=== PATIENT | female | born 1970 | race Caucasian/White ===

== ENCOUNTER 2017-07-01 09:39 | Outpatient (CLI) | payer OTHER, SELFPAY ==
[2017-07-01 10:08] VITALS: BMI 38.7
[2017-07-01 10:21] LABS: Basophils % 0.5 % (0.1-2.0); Eosinophils # 0.1 K/mm3 (0.0-0.4); Eosinophils % 1.6 % (0.1-12.0); Hematocrit 33.7 % (37.0-47.0); Hemoglobin 11.2 g/dL (12.2-16.2); Lymphocytes # 1.1 K/mm3 (0.7-4.5); Mean Corpuscular HGB Conc 33.2 g/dL (31.8-35.4); Mean Corpuscular Hemoglobin 30.1 pg (27.0-31.2); Mean Corpuscular Volume 90.6 fl (81-99); Mean Platelet Volume 7.7 fl (7.4-10.4); Monocytes # 0.3 K/mm3 (0.1-1.0); Monocytes % 5.5 % (1.7-9.3); Neutrophils # 4.4 K/mm3 (1.8-7.8); Neutrophils % 73.3 % (37.0-80.0); Platelet Count 133 K/mm3 (142-424); Red Blood Count 3.72 M/mm3 (4.20-5.40); Red Cell Distribution Width 16.1 % (11.5-17.5)
[2017-07-01 10:31] LABS: Alanine Aminotransferase 60 U/L (12-78); Albumin Level 3.5 gm/dL (3.4-5.0); Albumin/Globulin Ratio 1.1 (1.1-1.8); Alkaline Phosphatase 53 U/L (46-116); Anion Gap 11.9 mEq/L (5-15); Aspartate Amino Transferase 25 U/L (15-37); Bilirubin,Total 0.3 mg/dL (0.2-1.0); Blood Urea Nitrogen 14 mg/dL (7-18); Calcium 7.8 mg/dL (8.5-10.1); Carbon Dioxide 29 mmol/L (21.0-32.0); Chloride 108 mmol/L (98-107); Creatinine Clearance Estimated 149 mL/min (0-300); Creatinine,Serum 0.74 mg/dL (0.55-1.02); Estimated Glomerular Filt Rate 84 ml/min (>60); GFR (African American) 102 ML/MIN (>60); Globulin 3.3 gm/dl (1.3-3.2); Glucose 96 mg/dL (74-106); Potassium 4.9 mmoL/L (3.5-5.1); Sodium 144 mmol/L (136-145); Total Protein,Serum 6.8 gm/dL (6.4-8.2)
[2017-07-01 11:40] VITALS: BP 153/75; PULSE 66; RESP 20; TEMP 36.4
[2017-07-01 11:55] VITALS: BP 132/76; PULSE 66; RESP 20; TEMP 36.4
[2017-07-01 12:10] VITALS: BP 132/71; PULSE 66; RESP 20; TEMP 36.4; O2SAT 96
[2017-07-01 12:25] VITALS: BP 128/70; PULSE 68; RESP 20; TEMP 36.1; O2SAT 98
[2017-07-01 12:50] VITALS: BP 130/74; PULSE 68; RESP 18; TEMP 36.4; O2SAT 98
== END 2017-07-01 13:00 | disposition home or self-care (01) ==
LOC: RAD 09:42
PROVIDERS: PCP Internal Medicine Adolescent Medicine; Visit Provider Internal Medicine
DX: C50.919 Malignant neoplasm of unspecified site of unspecified female breast (principal); Z51.11 Encounter for antineoplastic chemotherapy
CPT/HCPCS: 80053; 85025; 96413; J1642; J9267

== ENCOUNTER 2017-07-09 09:00 | Outpatient (CLI) | payer OTHER, SELFPAY ==
[2017-07-09] VITALS (7 sets, daily range): BP systolic 141–155; BP diastolic 76–94; PULSE 85–96; RESP 18–20; TEMP 36.6–36.8; O2SAT 98–99; BMI 39.4
[2017-07-09 09:55] LABS: Basophils % 0.6 % (0.1-2.0); Eosinophils # 0.1 K/mm3 (0.0-0.4); Eosinophils % 2.2 % (0.1-12.0); Hematocrit 33.6 % (37.0-47.0); Hemoglobin 11.2 g/dL (12.2-16.2); Lymphocytes # 1.1 K/mm3 (0.7-4.5); Lymphocytes % 27.4 K/mm3 (10-50); Mean Corpuscular HGB Conc 33.3 g/dL (31.8-35.4); Mean Corpuscular Hemoglobin 30.6 pg (27.0-31.2); Mean Platelet Volume 7.5 fl (7.4-10.4); Monocytes # 0.3 K/mm3 (0.1-1.0); Monocytes % 7.3 % (1.7-9.3); Neutrophils # 2.6 K/mm3 (1.8-7.8); Neutrophils % 62.4 % (37.0-80.0); Platelet Count 145 K/mm3 (142-424); Red Blood Count 3.66 M/mm3 (4.20-5.40); White Blood Count 4.1 K/mm3 (4.8-10.8)
[2017-07-09 10:11] LABS: Alanine Aminotransferase 60 U/L (12-78); Albumin Level 3.7 gm/dL (3.4-5.0); Albumin/Globulin Ratio 1.2 (1.1-1.8); Alkaline Phosphatase 51 U/L (46-116); Anion Gap 12.9 mEq/L (5-15); Aspartate Amino Transferase 25 U/L (15-37); Bilirubin,Total 0.3 mg/dL (0.2-1.0); Blood Urea Nitrogen 13 mg/dL (7-18); Carbon Dioxide 27 mmol/L (21.0-32.0); Chloride 108 mmol/L (98-107); Creatinine Clearance Estimated 148 mL/min (0-300); Creatinine,Serum 0.76 mg/dL (0.55-1.02); Estimated Glomerular Filt Rate 82 ml/min (>60); GFR (African American) 99 ML/MIN (>60); Globulin 3.2 gm/dl (1.3-3.2); Glucose 99 mg/dL (74-106); Potassium 3.9 mmoL/L (3.5-5.1); Sodium 144 mmol/L (136-145); Total Protein,Serum 6.9 gm/dL (6.4-8.2)
== END 2017-07-09 12:10 | disposition home or self-care (01) ==
LOC: INF 09:40
PROVIDERS: Family Provider Internal Medicine Adolescent Medicine; PCP Internal Medicine Adolescent Medicine; Visit Provider Internal Medicine
DX: Z51.11 Encounter for antineoplastic chemotherapy (principal); C50.919 Malignant neoplasm of unspecified site of unspecified female breast
CPT/HCPCS: 80053; 85025; 96413; 96415; J9267

== ENCOUNTER 2017-07-16 09:15 | Outpatient (CLI) | payer OTHER, SELFPAY ==
[2017-07-16] VITALS (7 sets, daily range): BP systolic 126–145; BP diastolic 73–87; PULSE 82–98; RESP 18–20; TEMP 36.7; O2SAT 94; BMI 38.9
[2017-07-16 09:44] LABS: Basophils % 0.7 % (0.1-2.0); Eosinophils # 0.2 K/mm3 (0.0-0.4); Eosinophils % 3.6 % (0.1-12.0); Hematocrit 34.4 % (37.0-47.0); Hemoglobin 11.3 g/dL (12.2-16.2); Lymphocytes # 1.3 K/mm3 (0.7-4.5); Lymphocytes % 31.4 K/mm3 (10-50); Mean Corpuscular HGB Conc 32.9 g/dL (31.8-35.4); Mean Corpuscular Hemoglobin 30.6 pg (27.0-31.2); Mean Corpuscular Volume 93.1 fl (81-99); Mean Platelet Volume 7.7 fl (7.4-10.4); Monocytes # 0.3 K/mm3 (0.1-1.0); Monocytes % 6.6 % (1.7-9.3); Neutrophils # 2.4 K/mm3 (1.8-7.8); Neutrophils % 57.8 % (37.0-80.0); Platelet Count 144 K/mm3 (142-424); Red Blood Count 3.69 M/mm3 (4.20-5.40); Red Cell Distribution Width 16.4 % (11.5-17.5); White Blood Count 4.1 K/mm3 (4.8-10.8)
== END 2017-07-16 12:15 | disposition home or self-care (01) ==
LOC: INF 09:34
PROVIDERS: Family Provider Internal Medicine Adolescent Medicine; PCP Internal Medicine Adolescent Medicine; Visit Provider Internal Medicine
DX: Z51.11 Encounter for antineoplastic chemotherapy (principal); C50.919 Malignant neoplasm of unspecified site of unspecified female breast
CPT/HCPCS: 85025; 96413; 96415; J9267

== ENCOUNTER 2017-07-29 08:50 | Outpatient (CLI) | payer OTHER, SELFPAY ==
[2017-07-29 08:59] VITALS: BMI 38.9
[2017-07-29 09:21] LABS: Basophils % 0.4 % (0.1-2.0); Eosinophils # 0.1 K/mm3 (0.0-0.4); Eosinophils % 1.9 % (0.1-12.0); Hematocrit 35.8 % (37.0-47.0); Hemoglobin 11.5 g/dL (12.2-16.2); Lymphocytes # 1.2 K/mm3 (0.7-4.5); Lymphocytes % 30.5 K/mm3 (10-50); Mean Corpuscular HGB Conc 32.1 g/dL (31.8-35.4); Mean Corpuscular Hemoglobin 30.3 pg (27.0-31.2); Mean Corpuscular Volume 94.3 fl (81-99); Mean Platelet Volume 8.1 fl (7.4-10.4); Monocytes # 0.3 K/mm3 (0.1-1.0); Monocytes % 7.6 % (1.7-9.3); Neutrophils # 2.3 K/mm3 (1.8-7.8); Neutrophils % 59.6 % (37.0-80.0); Platelet Count 147 K/mm3 (142-424); Red Cell Distribution Width 16.2 % (11.5-17.5); White Blood Count 3.8 K/mm3 (4.8-10.8)
[2017-07-29 10:15] VITALS: BP 122/69; PULSE 104; RESP 18; TEMP 36.5
[2017-07-29 10:30] VITALS: BP 117/82; PULSE 96; RESP 18
[2017-07-29 10:45] VITALS: BP 122/69; PULSE 99; RESP 18
[2017-07-29 11:00] VITALS: BP 113/75; PULSE 97; RESP 18
[2017-07-29 11:15] VITALS: BP 119/72; PULSE 98; RESP 18
[2017-07-29 11:30] VITALS: BP 110/65; PULSE 97; RESP 18
== END 2017-07-29 11:40 | disposition home or self-care (01) ==
LOC: INF 08:55
PROVIDERS: Family Provider Internal Medicine Adolescent Medicine; PCP Internal Medicine Adolescent Medicine; Visit Provider Internal Medicine
DX: Z51.11 Encounter for antineoplastic chemotherapy (principal); C50.919 Malignant neoplasm of unspecified site of unspecified female breast
CPT/HCPCS: 85025; 96413; 96415; J9267

== ENCOUNTER 2017-08-06 09:29 | Outpatient (CLI) | payer OTHER, SELFPAY ==
[2017-08-06 09:33] VITALS: BMI 39.6
[2017-08-06 10:00] LABS: Basophils % 0.5 % (0.1-2.0); Eosinophils % 1.2 % (0.1-12.0); Hematocrit 34.2 % (37.0-47.0); Hemoglobin 11.4 g/dL (12.2-16.2); Lymphocytes # 1.2 K/mm3 (0.7-4.5); Lymphocytes % 34.5 K/mm3 (10-50); Mean Corpuscular HGB Conc 33.4 g/dL (31.8-35.4); Mean Corpuscular Hemoglobin 32.1 pg (27.0-31.2); Mean Platelet Volume 7.2 fl (7.4-10.4); Monocytes # 0.2 K/mm3 (0.1-1.0); Monocytes % 6.6 % (1.7-9.3); Neutrophils # 1.9 K/mm3 (1.8-7.8); Neutrophils % 57.2 % (37.0-80.0); Platelet Count 160 K/mm3 (142-424); Red Blood Count 3.56 M/mm3 (4.20-5.40); Red Cell Distribution Width 16.4 % (11.5-17.5); White Blood Count 3.4 K/mm3 (4.8-10.8)
[2017-08-06 11:15] VITALS: BP 119/79; PULSE 68; RESP 20; TEMP 36.4; O2SAT 96
[2017-08-06 11:30] VITALS: BP 122/70; PULSE 78; RESP 20; TEMP 36.7; O2SAT 96
[2017-08-06 12:15] VITALS: BP 118/74; PULSE 78; RESP 20; TEMP 36.9; O2SAT 98
== END 2017-08-06 12:30 | disposition home or self-care (01) ==
LOC: INF 09:29
PROVIDERS: Family Provider Internal Medicine Adolescent Medicine; PCP Internal Medicine Adolescent Medicine; Visit Provider Internal Medicine
DX: Z51.11 Encounter for antineoplastic chemotherapy (principal); C50.919 Malignant neoplasm of unspecified site of unspecified female breast
CPT/HCPCS: 85025; 96413; J9267

== ENCOUNTER 2017-08-12 09:35 | Outpatient (CLI) | payer OTHER, SELFPAY ==
[2017-08-12] VITALS (7 sets, daily range): BP systolic 102–118; BP diastolic 63–76; PULSE 92–99; RESP 18–20; TEMP 36.6; O2SAT 96–97; BMI 38.7
[2017-08-12 10:06] LABS: Basophils % 0.8 % (0.1-2.0); Eosinophils # 0.1 K/mm3 (0.0-0.4); Eosinophils % 2.5 % (0.1-12.0); Hematocrit 36.3 % (37.0-47.0); Hemoglobin 11.9 g/dL (12.2-16.2); Lymphocytes % 33.5 K/mm3 (10-50); Mean Corpuscular HGB Conc 32.7 g/dL (31.8-35.4); Mean Corpuscular Hemoglobin 31.4 pg (27.0-31.2); Mean Platelet Volume 8.2 fl (7.4-10.4); Monocytes # 0.2 K/mm3 (0.1-1.0); Monocytes % 7.9 % (1.7-9.3); Neutrophils # 1.7 K/mm3 (1.8-7.8); Neutrophils % 55.4 % (37.0-80.0); Platelet Count 159 K/mm3 (142-424); Red Blood Count 3.79 M/mm3 (4.20-5.40)
== END 2017-08-12 12:35 | disposition home or self-care (01) ==
LOC: INF 09:37
PROVIDERS: Family Provider Internal Medicine Adolescent Medicine; PCP Internal Medicine Adolescent Medicine; Visit Provider Internal Medicine
DX: Z51.11 Encounter for antineoplastic chemotherapy (principal); C50.919 Malignant neoplasm of unspecified site of unspecified female breast
CPT/HCPCS: 85025; 96413; 96415; J9267

== ENCOUNTER 2017-08-27 09:10 | Outpatient (CLI) | payer OTHER, SELFPAY ==
[2017-08-27 09:28] VITALS: BMI 38.7
[2017-08-27 10:00] LABS: Basophils % 0.2 % (0.1-2.0); Eosinophils # 0.1 K/mm3 (0.0-0.4); Eosinophils % 1.4 % (0.1-12.0); Hemoglobin 11.4 g/dL (12.2-16.2); Lymphocytes # 1.2 K/mm3 (0.7-4.5); Lymphocytes % 30.2 K/mm3 (10-50); Mean Corpuscular HGB Conc 32.7 g/dL (31.8-35.4); Mean Corpuscular Hemoglobin 31.4 pg (27.0-31.2); Mean Corpuscular Volume 96.2 fl (81-99); Monocytes # 0.3 K/mm3 (0.1-1.0); Monocytes % 7.3 % (1.7-9.3); Neutrophils # 2.4 K/mm3 (1.8-7.8); Neutrophils % 60.8 % (37.0-80.0); Platelet Count 158 K/mm3 (142-424); Red Blood Count 3.64 M/mm3 (4.20-5.40); Red Cell Distribution Width 15.7 % (11.5-17.5)
[2017-08-27 10:48] VITALS: BP 118/84; PULSE 96; RESP 18; TEMP 36.4; O2SAT 100
[2017-08-27 11:03] VITALS: BP 127/64; PULSE 72; RESP 18; O2SAT 98
[2017-08-27 11:18] VITALS: BP 139/91; PULSE 100; RESP 18; O2SAT 97
[2017-08-27 11:33] VITALS: BP 137/85; PULSE 96; RESP 18; O2SAT 99
[2017-08-27 11:48] VITALS: BP 131/81; PULSE 94; RESP 18; O2SAT 98
[2017-08-27 12:06] VITALS: BP 129/84; PULSE 97; RESP 18; O2SAT 99
== END 2017-08-27 12:30 | disposition home or self-care (01) ==
LOC: INF 09:26
PROVIDERS: Family Provider Internal Medicine Adolescent Medicine; PCP Internal Medicine Adolescent Medicine; Visit Provider Internal Medicine
DX: Z51.11 Encounter for antineoplastic chemotherapy (principal); C50.919 Malignant neoplasm of unspecified site of unspecified female breast
CPT/HCPCS: 85025; 96413; J9267

== ENCOUNTER 2017-09-03 09:10 | Outpatient (CLI) | payer OTHER, SELFPAY ==
[2017-09-03 09:12] VITALS: BMI 40.1
[2017-09-03 09:45] LABS: Basophils % 0.6 % (0.1-2.0); Eosinophils # 0.1 K/mm3 (0.0-0.4); Eosinophils % 1.5 % (0.1-12.0); Hematocrit 35.9 % (37.0-47.0); Hemoglobin 11.6 g/dL (12.2-16.2); Lymphocytes # 1.2 K/mm3 (0.7-4.5); Lymphocytes % 32.1 K/mm3 (10-50); Mean Corpuscular HGB Conc 32.4 g/dL (31.8-35.4); Mean Corpuscular Hemoglobin 31.5 pg (27.0-31.2); Mean Corpuscular Volume 97.4 fl (81-99); Mean Platelet Volume 7.6 fl (7.4-10.4); Monocytes # 0.3 K/mm3 (0.1-1.0); Monocytes % 7.1 % (1.7-9.3); Neutrophils # 2.2 K/mm3 (1.8-7.8); Neutrophils % 58.6 % (37.0-80.0); Platelet Count 153 K/mm3 (142-424); Red Blood Count 3.68 M/mm3 (4.20-5.40); Red Cell Distribution Width 15.8 % (11.5-17.5); White Blood Count 3.7 K/mm3 (4.8-10.8)
[2017-09-03 10:40] VITALS: BP 141/87; PULSE 92; RESP 18; TEMP 36.7
[2017-09-03 10:55] VITALS: BP 139/75; PULSE 95; RESP 18
[2017-09-03 11:10] VITALS: BP 133/82; PULSE 94; RESP 18
[2017-09-03 11:25] VITALS: BP 135/81; PULSE 102; RESP 18
[2017-09-03 11:40] VITALS: BP 136/74; PULSE 102; RESP 18
[2017-09-03 12:00] VITALS: BP 129/68; PULSE 102; RESP 20
== END 2017-09-03 12:00 | disposition home or self-care (01) ==
LOC: INF 09:10
PROVIDERS: Family Provider Internal Medicine Adolescent Medicine; PCP Internal Medicine Adolescent Medicine; Visit Provider Internal Medicine
DX: Z51.11 Encounter for antineoplastic chemotherapy (principal); C50.919 Malignant neoplasm of unspecified site of unspecified female breast
CPT/HCPCS: 85025; 96413; J9267

== ENCOUNTER → 2017-09-09 09:40 | Outpatient (CLI) | payer OTHER, SELFPAY | PROVIDERS: Family Provider Internal Medicine Adolescent Medicine; PCP Internal Medicine Adolescent Medicine; Visit Provider Internal Medicine ==

== ENCOUNTER 2017-10-21 10:37 | Outpatient (CLI) | payer OTHER, SELFPAY ==
[2017-10-21 10:35] VITALS: BP 135/76; PULSE 71; RESP 18; TEMP 36.6; O2SAT 97
== END 2017-10-21 10:50 | disposition home or self-care (01) ==
LOC: INF 10:37
PROVIDERS: Family Provider Internal Medicine Adolescent Medicine; PCP Internal Medicine Adolescent Medicine; Visit Provider Internal Medicine
DX: Z45.2 Encounter for adjustment and management of vascular access device (principal)
CPT/HCPCS: 96523; J1642

== ENCOUNTER 2017-12-16 10:02 | Outpatient (CLI) | payer OTHER, SELFPAY | END 2017-12-16 10:35 | disposition home or self-care (01) | LOC: INF 10:02 | PROVIDERS: Family Provider Internal Medicine Adolescent Medicine; PCP Internal Medicine Adolescent Medicine; Visit Provider Internal Medicine | DX: C50.919 Malignant neoplasm of unspecified site of unspecified female breast (principal); Z45.2 Encounter for adjustment and management of vascular access device | CPT/HCPCS: 96523; J1642 ==

== ENCOUNTER → 2018-01-03 14:37 | Outpatient (CLI) | payer OTHER, SELFPAY ==
[2018-01-03 14:53] LABS: Basophils % 0.5 % (0.1-2.0); Eosinophils # 0.1 K/mm3 (0.0-0.4); Eosinophils % 3.5 % (0.1-12.0); Hematocrit 39.4 % (37.0-47.0); Hemoglobin 13.2 g/dL (12.2-16.2); Lymphocytes # 1.2 K/mm3 (0.7-4.5); Lymphocytes % 31.7 K/mm3 (10-50); Mean Corpuscular HGB Conc 33.6 g/dL (31.8-35.4); Mean Corpuscular Hemoglobin 29.2 pg (27.0-31.2); Mean Corpuscular Volume 86.9 fl (81-99); Mean Platelet Volume 6.4 fl (7.4-10.4); Monocytes # 0.2 K/mm3 (0.1-1.0); Monocytes % 5.2 % (1.7-9.3); Neutrophils # 2.3 K/mm3 (1.8-7.8); Neutrophils % 59.1 % (37.0-80.0); Platelet Count 134 K/mm3 (142-424); Red Blood Count 4.53 M/mm3 (4.20-5.40); Red Cell Distribution Width 19.9 % (11.5-17.5); White Blood Count 3.9 K/mm3 (4.8-10.8)
[2018-01-03 15:13] LABS: Alanine Aminotransferase 58 U/L (12-78); Albumin Level 4.1 gm/dL (3.4-5.0); Albumin/Globulin Ratio 1.2 (1.1-1.8); Alkaline Phosphatase 76 U/L (46-116); Aspartate Amino Transferase 34 U/L (15-37); Bilirubin,Total 0.3 mg/dL (0.2-1.0); Blood Urea Nitrogen 15 mg/dL (7-18); Calcium 9.4 mg/dL (8.5-10.1); Carbon Dioxide 26 mmol/L (21.0-32.0); Chloride 107 mmol/L (98-107); Creatinine,Serum 0.91 mg/dL (0.55-1.02); Estimated Glomerular Filt Rate 66 ml/min (>60); GFR (African American) 80 ML/MIN (>60); Globulin 3.4 gm/dl (1.3-3.2); Glucose 102 mg/dL (74-106); Sodium 141 mmol/L (136-145); Total Protein,Serum 7.5 gm/dL (6.4-8.2)
== END ==
PROVIDERS: Visit Provider Internal Medicine
DX: C50.919 Malignant neoplasm of unspecified site of unspecified female breast (principal)
CPT/HCPCS: 36415; 80053; 85025

== ENCOUNTER 2018-01-13 10:05 | Outpatient (CLI) | payer OTHER, SELFPAY | END 2018-01-13 10:25 | disposition home or self-care (01) | LOC: INF 10:05 | PROVIDERS: Family Provider Internal Medicine Adolescent Medicine; PCP Internal Medicine Adolescent Medicine; Visit Provider Internal Medicine | DX: C50.919 Malignant neoplasm of unspecified site of unspecified female breast; Z45.2 Encounter for adjustment and management of vascular access device | CPT/HCPCS: 96523; J1642 ==

== ENCOUNTER → 2018-02-14 15:03 | Outpatient (CLI) | payer OTHER, SELFPAY ==
[2018-02-14 15:37] LABS: Basophils % 0.6 % (0.1-2.0); Eosinophils # 0.1 K/mm3 (0.0-0.4); Eosinophils % 1.8 % (0.1-12.0); Hemoglobin 13.3 g/dL (12.2-16.2); Lymphocytes # 1.5 K/mm3 (0.7-4.5); Lymphocytes % 35.2 K/mm3 (10-50); Mean Corpuscular HGB Conc 33.2 g/dL (31.8-35.4); Mean Corpuscular Hemoglobin 31.1 pg (27.0-31.2); Mean Corpuscular Volume 93.8 fl (81-99); Mean Platelet Volume 6.8 fl (7.4-10.4); Monocytes # 0.3 K/mm3 (0.1-1.0); Neutrophils # 2.4 K/mm3 (1.8-7.8); Neutrophils % 56.4 % (37.0-80.0); Platelet Count 147 K/mm3 (142-424); Red Blood Count 4.26 M/mm3 (4.20-5.40); Red Cell Distribution Width 19.2 % (11.5-17.5); White Blood Count 4.3 K/mm3 (4.8-10.8)
[2018-02-14 16:07] LABS: Alanine Aminotransferase 66 U/L (12-78); Albumin/Globulin Ratio 1.3 (1.1-1.8); Alkaline Phosphatase 80 U/L (46-116); Anion Gap 12.1 mEq/L (5-15); Aspartate Amino Transferase 31 U/L (15-37); Bilirubin,Total 0.3 mg/dL (0.2-1.0); Blood Urea Nitrogen 7 mg/dL (7-18); Carbon Dioxide 28 mmol/L (21.0-32.0); Chloride 109 mmol/L (98-107); Creatinine,Serum 0.77 mg/dL (0.55-1.02); Estimated Glomerular Filt Rate 80 ml/min (>60); GFR (African American) 97 ML/MIN (>60); Globulin 3.1 gm/dl (1.3-3.2); Glucose 107 mg/dL (74-106); Potassium 4.1 mmoL/L (3.5-5.1); Sodium 145 mmol/L (136-145); Total Protein,Serum 7.1 gm/dL (6.4-8.2)
== END ==
PROVIDERS: PCP Internal Medicine Adolescent Medicine; Visit Provider Internal Medicine
DX: C50.919 Malignant neoplasm of unspecified site of unspecified female breast (principal)
CPT/HCPCS: 36415; 80053; 85025

== ENCOUNTER 2018-02-17 10:20 | Outpatient (CLI) | payer OTHER, SELFPAY ==
[2018-02-17 10:35] VITALS: BP 125/77; PULSE 84; RESP 18; TEMP 36.6; O2SAT 98
== END 2018-02-17 10:45 | disposition home or self-care (01) ==
LOC: INF 10:20
PROVIDERS: Family Provider Internal Medicine Adolescent Medicine; PCP Internal Medicine Adolescent Medicine; Visit Provider Internal Medicine
DX: Z45.2 Encounter for adjustment and management of vascular access device (principal); C50.919 Malignant neoplasm of unspecified site of unspecified female breast
CPT/HCPCS: 96523; J1642

== ENCOUNTER → 2018-02-28 15:17 | Outpatient (CLI) | payer OTHER, SELFPAY ==
[2018-02-28 15:43] LABS: Basophils % 0.5 % (0.1-2.0); Eosinophils # 0.1 K/mm3 (0.0-0.4); Eosinophils % 2.7 % (0.1-12.0); Hematocrit 39.3 % (37.0-47.0); Hemoglobin 13.1 g/dL (12.2-16.2); Lymphocytes # 1.9 K/mm3 (0.7-4.5); Lymphocytes % 39.7 K/mm3 (10-50); Mean Corpuscular HGB Conc 33.4 g/dL (31.8-35.4); Mean Corpuscular Hemoglobin 31.7 pg (27.0-31.2); Mean Corpuscular Volume 94.9 fl (81-99); Mean Platelet Volume 6.6 fl (7.4-10.4); Monocytes # 0.3 K/mm3 (0.1-1.0); Monocytes % 6.8 % (1.7-9.3); Neutrophils # 2.4 K/mm3 (1.8-7.8); Neutrophils % 50.4 % (37.0-80.0); Platelet Count 150 K/mm3 (142-424); Red Blood Count 4.15 M/mm3 (4.20-5.40); Red Cell Distribution Width 18.3 % (11.5-17.5); White Blood Count 4.8 K/mm3 (4.8-10.8)
[2018-02-28 16:33] LABS: Alanine Aminotransferase 61 U/L (12-78); Albumin Level 3.9 gm/dL (3.4-5.0); Albumin/Globulin Ratio 1.2 (1.1-1.8); Alkaline Phosphatase 75 U/L (46-116); Anion Gap 12.8 mEq/L (5-15); Aspartate Amino Transferase 34 U/L (15-37); Bilirubin,Total 0.3 mg/dL (0.2-1.0); Blood Urea Nitrogen 17 mg/dL (7-18); Calcium 9.1 mg/dL (8.5-10.1); Carbon Dioxide 30 mmol/L (21.0-32.0); Chloride 104 mmol/L (98-107); Creatinine,Serum 0.87 mg/dL (0.55-1.02); Estimated Glomerular Filt Rate 70 ml/min (>60); GFR (African American) 84 ML/MIN (>60); Globulin 3.2 gm/dl (1.3-3.2); Glucose 100 mg/dL (74-106); Potassium 3.8 mmoL/L (3.5-5.1); Sodium 143 mmol/L (136-145); Total Protein,Serum 7.1 gm/dL (6.4-8.2)
== END ==
PROVIDERS: PCP Internal Medicine Adolescent Medicine; Visit Provider Internal Medicine
DX: Z51.11 Encounter for antineoplastic chemotherapy (principal); C50.919 Malignant neoplasm of unspecified site of unspecified female breast
CPT/HCPCS: 36415; 80053; 85025

== ENCOUNTER → 2018-03-17 08:18 | Outpatient (CLI) | payer OTHER, SELFPAY ==
[2018-03-17 08:46] LABS: Basophils % 0.2 % (0.1-2.0); Eosinophils # 0.1 K/mm3 (0.0-0.4); Eosinophils % 2.1 % (0.1-12.0); Hematocrit 40.3 % (37.0-47.0); Hemoglobin 13.3 g/dL (12.2-16.2); Lymphocytes # 1.5 K/mm3 (0.7-4.5); Lymphocytes % 31.4 K/mm3 (10-50); Mean Corpuscular HGB Conc 33.1 g/dL (31.8-35.4); Mean Corpuscular Hemoglobin 32.2 pg (27.0-31.2); Mean Corpuscular Volume 97.4 fl (81-99); Mean Platelet Volume 6.8 fl (7.4-10.4); Monocytes # 0.3 K/mm3 (0.1-1.0); Monocytes % 6.6 % (1.7-9.3); Neutrophils # 2.9 K/mm3 (1.8-7.8); Neutrophils % 59.6 % (37.0-80.0); Platelet Count 138 K/mm3 (142-424); Red Blood Count 4.14 M/mm3 (4.20-5.40); White Blood Count 4.8 K/mm3 (4.8-10.8)
[2018-03-17 09:09] LABS: Alanine Aminotransferase 61 U/L (12-78); Albumin Level 3.8 gm/dL (3.4-5.0); Albumin/Globulin Ratio 1.2 (1.1-1.8); Alkaline Phosphatase 81 U/L (46-116); Anion Gap 13.1 mEq/L (5-15); Aspartate Amino Transferase 37 U/L (15-37); Bilirubin,Total 0.4 mg/dL (0.2-1.0); Blood Urea Nitrogen 16 mg/dL (7-18); Calcium 9.1 mg/dL (8.5-10.1); Carbon Dioxide 26 mmol/L (21.0-32.0); Chloride 106 mmol/L (98-107); Creatinine,Serum 0.79 mg/dL (0.55-1.02); Estimated Glomerular Filt Rate 78 ml/min (>60); GFR (African American) 94 ML/MIN (>60); Globulin 3.2 gm/dl (1.3-3.2); Glucose 105 mg/dL (74-106); Potassium 4.1 mmoL/L (3.5-5.1); Sodium 141 mmol/L (136-145)
== END ==
PROVIDERS: PCP Internal Medicine Adolescent Medicine; Visit Provider Internal Medicine
DX: C50.919 Malignant neoplasm of unspecified site of unspecified female breast (principal); Z51.11 Encounter for antineoplastic chemotherapy
CPT/HCPCS: 36415; 80053; 85025

== ENCOUNTER → 2018-03-28 13:25 | Outpatient (CLI) | payer OTHER, SELFPAY ==
[2018-03-28 13:42] LABS: Basophils % 0.8 % (0.1-2.0); Eosinophils # 0.1 K/mm3 (0.0-0.4); Eosinophils % 2.4 % (0.1-12.0); Hematocrit 42.9 % (37.0-47.0); Lymphocytes # 1.3 K/mm3 (0.7-4.5); Lymphocytes % 33.4 K/mm3 (10-50); Mean Corpuscular HGB Conc 32.6 g/dL (31.8-35.4); Mean Corpuscular Hemoglobin 32.6 pg (27.0-31.2); Mean Platelet Volume 7.3 fl (7.4-10.4); Monocytes # 0.3 K/mm3 (0.1-1.0); Monocytes % 6.6 % (1.7-9.3); Neutrophils # 2.2 K/mm3 (1.8-7.8); Neutrophils % 56.8 % (37.0-80.0); Platelet Count 140 K/mm3 (142-424); Red Blood Count 4.29 M/mm3 (4.20-5.40); Red Cell Distribution Width 16.3 % (11.5-17.5); White Blood Count 3.8 K/mm3 (4.8-10.8)
[2018-03-28 14:27] LABS: Alanine Aminotransferase 57 U/L (12-78); Albumin Level 4.1 gm/dL (3.4-5.0); Albumin/Globulin Ratio 1.3 (1.1-1.8); Alkaline Phosphatase 80 U/L (46-116); Anion Gap 12.3 mEq/L (5-15); Aspartate Amino Transferase 34 U/L (15-37); Bilirubin,Total 0.3 mg/dL (0.2-1.0); Blood Urea Nitrogen 11 mg/dL (7-18); Calcium 9.4 mg/dL (8.5-10.1); Carbon Dioxide 31 mmol/L (21.0-32.0); Chloride 104 mmol/L (98-107); Creatinine,Serum 0.77 mg/dL (0.55-1.02); Estimated Glomerular Filt Rate 80 ml/min (>60); GFR (African American) 97 ML/MIN (>60); Globulin 3.2 gm/dl (1.3-3.2); Glucose 105 mg/dL (74-106); Potassium 4.3 mmoL/L (3.5-5.1); Sodium 143 mmol/L (136-145); Total Protein,Serum 7.3 gm/dL (6.4-8.2)
== END ==
PROVIDERS: PCP Internal Medicine Adolescent Medicine; Visit Provider Internal Medicine
DX: C50.919 Malignant neoplasm of unspecified site of unspecified female breast (principal); Z51.11 Encounter for antineoplastic chemotherapy
CPT/HCPCS: 36415; 80053; 85025

== ENCOUNTER → 2018-07-16 10:41 | Outpatient (CLI) | payer OTHER, SELFPAY ==
--- NOTE | 2018-07-16 10:50 | XR_ITS ---
XR knee RT 3V HISTORY: Pain ITS.REASON: OSTEOARTHRITIS ORDERING PHYSICIAN: Khurram Holguin MD PATIENT AGE: 47 years COMPARISON: None FINDINGS: Mild osteoarthritic changes are present at the medial compartment. No fracture or dislocation. No lytic or blastic change. IMPRESSION: Mild osteoarthritis of the right knee
== END ==
PROVIDERS: PCP Internal Medicine Adolescent Medicine; Visit Provider Internal Medicine Adolescent Medicine
DX: M17.11 Unilateral primary osteoarthritis, right knee (principal)
CPT/HCPCS: 73562

== ENCOUNTER 2018-09-30 15:00 | Outpatient (RCR) | payer OTHER, SELFPAY ==
--- NOTE | 2018-07-23 13:58 | HMH.PTOPEV ---
PT Outpatient Evaluation Rehab PT Outpatient Evaluation Start: 07/23/18 13:48 Freq: Status: Active Protocol: Document 07/23/18 13:48 BARBARA (Rec: 07/23/18 13:58 BARBARA [id number]) Electronically Signed By Jian Magallon, PT 07/23/18 13:48 Outpatient Therapy Subjective History Subjective History Pt reports h/o chronic R knee pain beginning w/injury in 2014. Pt reports walking injury to R knee, made a ' crunch type sound, with immediate pain'. Pt reports pain since initial injury, mostly anterio-medial in origin, with episodes of ' hyper-extending, popping, and cracking'. Recent Xrays have revealed OA of R knee. Chief Complaint Pain Stiff Swelling Catches/Locks Gives out/Unstable Weakness Symptom Type Ache Sharp Dull Stabbing Symptoms Relieved By Rest/Positioning Symptoms Aggravated By Standing Physical Activity Twisting Walking Prior Functional Limitations Housework Standing Squatting Walking Stairs Current Functional Limitations Housework Standing Squatting Walking Stairs Symptom Description Constant but Variable Level of pain today (0-10) 4 Pain scale - at its best (0-10) 3 Pain scale - at its worst (0-10) 6 Hip/Knee Eval Gait Observation General Gait Pattern Observation Antalgic Gait Assistive Device Assistive Devices None / NA Palpation Tenderness right Knee Palpation Finding Tenderness Knee Palpation Overall Comment 3/4 MEDIAL JT LINE/MCL MMT left Hip Flexion Strength Grade 5 Normal Hip Abduction Strength Grade 4 Good Hip Adduction Strength Grade 4 Good Hip Extension Strength Grade 4 Good Hip External Rotation Strength Grade 5 Normal Hip Internal Rotation Strength Grade 4 Good Knee Extension Strength Grade 5 Normal Knee Flexion Strength Grade 5 Normal
--- NOTE | 2018-08-19 14:52 | HMH.RHREAS ---
Rehab Reassessment Rehab OP Re-assessment Start: 08/19/18 14:47 Freq: Status: Active Protocol: Document 08/19/18 14:47 BARBARA (Rec: 08/19/18 14:51 BARBARA [id number]) Electronically Signed By Jian Magallon, PT 08/19/18 14:47 Rehab Re-assessment Subjective Subjective PT REPORTS 1-2/10 R KNEE PAIN ON VAS, AND FEELS 'MUCH BETTER OVERALL' SINCE I EVAL Objective Objective Notes AROM R KNEE FLX 0-125 MMT: R KNEE FLX 4/5, R KNEE EXT 4+/5, R HIP FLX 4/5, R HIP ABD 4/5, R HIP ADD 4/5, R HIP EXT 4/5, R HIP IR 4/5, R HIP ER 4/5 TTP: R KNEE ANTERIO-MEDIAL JT LINE 1-2/4 Assessment Progress Assessment Progressing as Expected Assessment Notes PT W/IMPROVED STRENGTH, ROM, AND TTP Patient goals met STG'S 11/07 LTG'S 08/11 Goals Not Met STG'S 06/09, LTG'S 01/11 Plan Plan PT TO CONT. W/SKILLED P.T. TO MAKE FURTHER IMPROVEMENTS W/ ROM, STRENGTH, AND TTP TO ALLOW FOR OPTIMAL FUNCTION Frequency of Therapy 1-2X/WK Duration of therapy 2-4 WKS Time and Billing Re-Eval Time 15 Re-Eval Billing Units 1 PHYSICIAN CERTIFICATION: I certify the specified therapy services for Sushant Anne are required, authorized, and reviewed every 30 days.
== END 2018-09-30 15:05 | disposition home or self-care (01) ==
LOC: PT 15:00
PROVIDERS: Visit Provider Internal Medicine Adolescent Medicine
DX: M25.561 Pain in right knee (principal)
CPT/HCPCS: 97010; 97014; 97016; 97033; 97035; 97110; 97140; 97163; 97164; G0283

== ENCOUNTER 2024-09-28 14:03 | Outpatient (RCR) | payer BC, SELFPAY ==
--- NOTE | 2024-09-28 14:48 | HMH.OTOPEV ---
OT Inpatient Evaluation Rehab OT Outpatient Eval Start: 09/28/24 14:39 Freq: Status: Active Protocol: Document 09/28/24 14:39 RMDENISHA (Rec: 09/28/24 14:48 [facility] [id number] E-signed By Christina Obrien, OT Outpatient Therapy Subjective History Subjective History Pt is a 54 year old female who reports to therapy for initial evaluation to left shoulder. Pt reports she began having pain in left shoulder around Thanksgi2023 after completing heavier household cleaning. Pt reports pain in the anterior aspect of left shoulder that radiates down bicep into elbow . She started on an anti- inflammatory on September 07 and explains this has helped her symptoms significantly, but she is still having pain and difficulty with movement. Pt is right hand dominant. At this time she has not had a X- ray or MRI. Pt does demonstrate with significant weakness and decreased AROM at left shoulder upon evaluation . Therapist will continue to see patient twice a week in order to address all L shoulder deficits. Short term goals: 1. Pt will increase left shoulder flexion to 110 degrees in order to complete daily overhead tasks independently ~50% of the time . 2. Pt will increase L shoulder abduction to 110 degrees to complete upper body dressing independently ~50% of the time. 3. Pt will increase L shoulder ER/IR to 70 degrees ( ER) and 45 degrees (IR) in order to complete lower body dressing (putting on and taking off belt) independently ~50% of the time. 4. Pt will increase strength to 3+/5 throughout left shoulder in order to complete heavier household tasks ( laundry, mopping, vacuuming) independently ~50% of the time . 5. Pt will verbalize decreased pain levels at worst in L shoulder to a 6/10 in order to complete daily ADLs independently ~50% of the time . 6. Pt will demonstrate improved endurance by completing left shoulder exercises for ~20 minutes prior to rest break in order to increase his tolerance for daily work activities. 7. Pt will demonstrate independence with HEP of AAROM exercises to increase overall functional use of left shoulder in daily activities ~ 75% of the time. intermission coordinator goals: 1. Pt will increase L shoulder flexion to 125 degrees in order to complete daily overhead tasks independently ~75% of the time . 2. Pt will increase L shoulder abduction to 120 degrees to complete upper body dressing independently ~75% of the time. 3. Pt will increase L shoulder ER/IR to 80 degrees ( ER) and 60 degrees (IR)in order to complete lower body dressing (putting on and taking off belt) independently ~75% of the time. 4. Pt will increase strength to 4-/5 throughout left shoulder in order to complete heavier household tasks ( laundry, mopping, vacuuming) independently ~75% of the time . 5. Pt will verbalize decreased pain levels at worst in L shoulder to a 3/10 in order to complete daily ADLs independently ~75% of the time . 6. Pt will demonstrate improved endurance by completing L shoulder exercises for ~30 minutes prior to rest break in order to increase his tolerance for daily work activities. 7. Pt will demonstrate independence with HEP of Rotator cuff strengthening exercises to increase overall functional use of L shoulder for daily activities ~90% of the time. New diagnosis of cancer in past 12 No: Breast CA (left) 2017 months? Chief Complaint Pain,Stiff,Weakness Symptom Type Ache,Throb,Sharp,Dull Symptoms Relieved By Prescription Meds Symptoms Aggravated By Physical Activity,Lifting Prior Functional Limitations None Current Functional Limitations Reaching,Lifting,Housework, Dressing,Driving,Sleeping, Recreation Activity Symptom Description Intermittent,Activity Dependent Level of pain today (0-10) 2 Pain scale - at its best (0-10) 0 Pain scale - at its worst (0-10) 8 Shoulder/Elbow Eval Shoulder Objective Measurements Shoulder ROM Left Shoulder Abduction Active Range of 80 degrees Motion (degrees) Shoulder Flexion Active Range of Motion 95 degrees (degrees) Query Text: Shoulder External Rotation Active Range 65 degrees of Motion (degrees) Shoulder Internal Rotation Active Range 30 degrees of Motion (degrees) Shoulder MMT Shoulder Abduction Strength Grade 3 Fair Shoulder Flexion Strength Grade 3 Fair Shoulder External Rotation Strength 3 Fair Grade Shoulder Internal Rotation Strength 3 Fair Grade Shoulder Strength Patient Testing Sitting Position Shoulder Special Tests impingement sign present shoulder exam left standard Shoulder Empty Can (Supraspinatus) Test Positive Left Shoulder Rodriguez-Akbar Impingement Positive Left Test Shoulder [place] Test Positive Left Elbow Objective Measurements QuickDASH Activities Please rate your ability to do the following activities in the last week by selecting the number below the appropriate response. 1. Open a tight or new jar. Moderate difficulty 2. 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 3. Carry a shopping bag or briefcase. Mild difficulty 4. Wash your back. Mild difficulty 5. Use a knife to cut food. No difficulty 6. Recreational activities in which you Moderate difficulty take some force or impact through your arm, shoulder, or hand (e.g., golf, hammering, tennis, etc.). 7. During the past week, to what extent Not at all has your arm, shoulder or hand problem interfered with your normal social activities with family, friends, neighbors or groups? 8. During the past week, were you Not limited at all limited in your work or other regular daily activites as a result of your arm, shoulder or hand problem? 9. Arm, shoulder or hand pain. Moderate 10. Tingling (pins and needles) in your None arm, shoulder or hand. 11. During the past week, how much No difficulty difficulty have you had sleeping because of the pain in your arm, shoulder or hand? Quick DASH 20 OT Outpatient Assessment Impairments Problems/Impairments Palpation Tenderness,Impaired Range of Motion,Impaired Strength,Impaired Endurance, Impaired Lifting,Impaired Dressing,Impaired Shower/ Bathing,Impaired Household Care,Impaired Recreational Activities,Impaired Work Activities,Subjective C/O Pain Prognosis Rehab Potential Good Clinical Impression Consistent with Diagnosis Yes Short Term Goals Number of Weeks See history Penitentiary Goals Number of Weeks See history Outpatient Therapy Plan of Care Treatment Plan May Include Therapeutic Exercise Including Home Yes Exercise Program Manual Therapy Techniques Yes Neuromuscular Re-education Yes Therapeutic Activities to Return to Yes Previous Functional/Work Level ADL/Self Care Education Yes Dry Needling Yes Thermal Modalities Yes Electrical Stimulation Yes Ultrasound/Phonophoresis Yes Iontophoresis Yes Orthotics/Bracing/Splinting Yes Massage Yes Eval/Re-Eval Yes Frequency Times per week 2 Duration Number of Weeks 6 Addendums This patient is a candidate for social No or vocational rehab? Patient/Guardian verbally acknowledges Yes understanding of treatment program and consents to further treatment? Patient/Guardian verbally acknowledges Yes understanding of diagnosis, prognosis and goals for treatment? Eval Complexity OT Charge 60127 - Moderate Complexity PHYSICIAN CERTIFICATION: I certify the specified therapy services for Sushant Anne are required, authorized, and reviewed every 30 days.
== END 2024-09-28 23:59 | disposition home or self-care (01) ==
LOC: OT 14:03
PROVIDERS: PCP Internal Medicine Adolescent Medicine; Visit Provider Internal Medicine Adolescent Medicine
DX: M75.102 Unspecified rotator cuff tear or rupture of left shoulder, not specified as traumatic (principal)
CPT/HCPCS: 97166

== ENCOUNTER 2024-10-28 15:00 | Outpatient (RCR) | payer BC, SELFPAY ==
--- NOTE | 2024-11-10 17:20 | HMH.RHREAS ---
Rehab Reassessment Rehab OP Re-assessment Start: 10/12/24 14:58 Freq: Status: Discharge Protocol: Document 10/29/24 10:27 STEVEN (Rec: 10/29/24 10:41 STEVEN [id number]) E-signed By Patricia Ortiz OT QuickDASH Activities Please rate your ability to do the following activities in the last week by selecting the number below the appropriate response. 1. Open a tight or Moderate difficulty new jar. 2. Do heavy Mild difficulty bulk sausage casing tier off (e. g., wash thornton, floors). 3. Carry a shopping Mild difficulty bag or briefcase. 4. Wash your back. Mild difficulty 5. Use a knife to No difficulty cut food. 6. Recreational Moderate difficulty activities in which you take some force or impact through your arm, shoulder, or hand (e.g., golf, hammering, tennis, etc.). 7. During the past Not at all week, to what extent has your arm, shoulder or hand problem interfered with your normal social activities with family, friends , neighbors or groups? 8. During the past Not limited at all week, were you limited in your work or other regular daily activites as a result of your arm, shoulder or hand problem? 9. Arm, shoulder or Moderate hand pain. 10. Tingling (pins None and needles) in your arm, shoulder or hand. 11. During the past No difficulty week, how much difficulty have you had sleeping because of the pain in your arm, shoulder or hand? Quick DASH 20 Rehab Re-assessment Subjective Subjective It still hurts. Objective Objective Notes Pt continues to be seen twice a week in order to address left shoulder deficits. Each session, pt engages in L shoulder AROM, AAROM, and strengthening exercises. Pt also receives PROM manual stretching to right shoulder in all planes; flexion, abduction, ER, and IR. Modalities are provided in order to decrease pain/inflammation. Assessment Progress Assessment Slower Than Expected Assessment Notes Pt is consistent about attending therapy sessions. Pt's AROM has improved slightly since initial evaluation, but still remains limited. Pt's pain is still reaching 5/10 at worst. Current AROM L shoulder Flex: 95 degrees Abd: 85 degrees ER: 65 degrees IR: 60 degrees Patient goals met Short term goals: 3. Pt will increase L shoulder IR 45 degrees (IR) in order to complete lower body dressing (putting on and taking off belt) independently ~50% of the time. 4. Pt will increase strength to 3+/5 throughout left shoulder in order to complete heavier household tasks ( laundry, mopping, vacuuming) independently ~50% of the time. 5. Pt will verbalize decreased pain levels at worst in L shoulder to a 6/10 in order to complete daily ADLs independently ~50% of the time. 6. Pt will demonstrate improved endurance by completing left shoulder exercises for ~20 minutes prior to rest break in order to increase her tolerance for daily work activities. 7. Pt will demonstrate independence with HEP of AAROM exercises to increase overall functional use of left shoulder in daily activities ~75% of the time. vegetable specker goals: 3. Pt will increase L shoulder IR 60 degrees (IR)in order to complete lower body dressing (putting on and taking off belt) independently ~75% of the time. Goals Not Met see below Revised Goals Short term goals: 1. Pt will increase left shoulder flexion to 110 degrees in order to complete daily overhead tasks independently ~50% of the time. 2. Pt will increase L shoulder abduction to 110 degrees to complete upper body dressing independently ~ 50% of the time. 3. Pt will increase L shoulder ER to 70 degrees (ER) in order to complete lower body dressing (putting on and taking off belt) independently ~50% of the time. LT. Pt will increase L shoulder flexion to 125 degrees in order to complete daily overhead tasks independently ~75% of the time. 2. Pt will increase L shoulder abduction to 120 degrees to complete upper body dressing independently ~ 75% of the time. 3. Pt will increase L shoulder ER/IR to 80 degrees (ER ) and 60 degrees (IR)in order to complete lower body dressing (putting on and taking off belt) independently ~75% of the time. 4. Pt will increase strength to 4-/5 throughout left shoulder in order to complete heavier household tasks ( laundry, mopping, vacuuming) independently ~75% of the time. 5. Pt will verbalize decreased pain levels at worst in L shoulder to a 3/10 in order to complete daily ADLs independently ~75% of the time. 6. Pt will demonstrate improved endurance by completing L shoulder exercises for ~30 minutes prior to rest break in order to increase her tolerance for daily work activities. 7. Pt will demonstrate independence with HEP of Rotator cuff strengthening exercises to increase overall functional use of L shoulder for daily activities ~90% of the time. Plan Plan continue with OT POC at this time Frequency of Therapy 1x/wk Duration of therapy 4 more weeks Time and Billing Re-Eval Time 8 Re-Eval Billing 1 Units Charge for OT Yes reassessment? PHYSICIAN CERTIFICATION: I certify the specified therapy services for Sushant Anne are required, authorized, and reviewed every 30 days.
== END 2024-10-30 23:59 | disposition home or self-care (01) ==
LOC: OT 15:00
PROVIDERS: PCP Internal Medicine Adolescent Medicine; Visit Provider Internal Medicine Adolescent Medicine
DX: M75.102 Unspecified rotator cuff tear or rupture of left shoulder, not specified as traumatic (principal)
CPT/HCPCS: 97014; 97110; 97140; 97168; G0283

== ENCOUNTER 2024-11-10 17:00 | Outpatient (RCR) | payer BC, SELFPAY | END 2024-11-10 23:59 | disposition home or self-care (01) | LOC: OT 17:00 | PROVIDERS: PCP Internal Medicine Adolescent Medicine; Visit Provider Internal Medicine Adolescent Medicine | DX: M75.102 Unspecified rotator cuff tear or rupture of left shoulder, not specified as traumatic (principal) | CPT/HCPCS: 97014; 97110; 97140; G0283 ==

== ENCOUNTER 2024-12-14 12:39 | Outpatient (CLI) | payer BC, SELFPAY ==
--- OUTSIDE RECORDS SUMMARY | 2024-12-09 12:58 | XMS_ITS | Encounter Summary ---
Author Organization [facility] Address [address] [place] [address] Care Team Providers Care Client Care Consultant Name Role Phone Khurram Holguin MD Primary Care Provider [phone] Andrade Lucas MD Unavailable [phone] Jaimie Acosta MD Unavailable [phone] Encounter Details Date Type Department Care Team (Latest Contact Info) Description 12/09/2024 12:58 PM EDT - 12/09/2024 11:59 PM EDT Hospital Encounter [facility] [address] [id number] Malignant neoplasm of left breast in female, estrogen receptor negative, unspecified site of breast Discharge Disposition: Home or Self Care Social History Tobacco Use Types Packs/Day Years Used Date Smoking Tobacco: Former Cigarettes Q uit: 1989 Smokeless Tobacco: Never PHQ-2 Answer Date Recorded Patient Health Questionnaire-2 Score 0 12/09/2024 PHQ-9 Answer Date Recorded Patient Health Questionnaire-9 Score 0 12/09/2024 Comments No Sex and Gender Information Value Date Recorded Sex Assigned at Not on file Legal Sex Female 6:19 PM EDT Gender Identity Not on file Sexual Orientation Not on file documented as of this encounter Last Filed Vital Signs Vital Sign Reading Time Taken Comments Blood Pressure - - Pulse - - Temperature - - Respiratory Rate - - Oxygen Saturation - - Inhaled Oxygen Concentration - - Weight - - Height 160 cm (5' 3 ) 12/09/2024 1:37 PM EDT Body Mass Index - - documented in this encounter Functional Status * Over the past 2 weeks, how often have you been bothered by any of the following problems? Question Answer Date of Assessment Author Little interest or pleasure in doing things Not at all 12/09/2024 2:11 PM EDT Camille Remy Feeling down, depressed, or hopeless Not at all 12/09/2024 2:11 PM EDT Camille Remy Patient Health Questionnaire -2 Score 0 12/09/2024 2:11 PM EDT Camille Remy * Question Answer Date of Assessment Author Trouble falling or staying a sleep, or sleeping too much Not at all 12/09/2024 2:11 PM CHERYLT Camille Remy Feeling tired or having neida le energy Not at all 12/09/2024 2:11 PM CHERYLT Camille Remy Poor appetite or overeating Not at all 12/09/2024 2: 11 PM CHERYLT Camille Remy Feeling bad about yourself - or that you are a failure or have let yourself or your family down Not at all 12/09/2024 2:11 PM Camille Boogie Trouble concentrating on thi ngs, such as reading the newspaper or watching television Not at all 12/09/2024 2:11 PM Camille Boogie Moving or speaking so slowly that other people could have noticed? Or the opposite - being so fidgety or restless that you have been moving around a lot more than usual. Not at all 12/09/2024 2:11 PM Camille Boogie Thoughts that you would be b shae off or hurting yourself in some way Not at all 12/09/2024 2:11 PM Camille Boogie Patient Health Questionnaire -9 Score 0 12/09/2024 2:11 PM Camille Boogie * If you checked off any problems on this questionnaire so far, Question Answer Date of Assessment Author How difficult have these problems made it for you to do your work, take care of things at home, or get along with other people? Not difficult at all 12/09/2024 2:11 PM EDT Camille Remy documented as of this encounter Medications at Time of Discharge clobetasol (Temovate) 0.05 % cream Apply 1 application topically 2 (two) times a day. 04/21/2020 labetalol (Normodyne) 200 MG tablet Take 1 tablet (200 mg) by mouth 2 (two) times a day. lisinopril-hydro CHLOROthiazide 20-25 MG tablet Take 1 tablet by mouth 1 (one) time each day. 05/20/2023 metFORMIN (Glucophage) 500 MG tablet Take 1 tablet (500 mg) by mouth 2 (two) times a day with meals. nystatin (Mycostatin) 550636 UNIT/GM powder 08/30/2022 spironolactone (Aldactone) 50 MG tablet Take 1 tablet (50 mg) by mouth 2 (two) times a day. 10/28/2020 documented as of this encounter Plan of Treatment Upcoming Encounters Date Type Department Care Team (Late st Contact Info) Description 12/13/2025 2:00 PM EDT Appointment [facility] [place] [facility] [address] [place] [address] 12/13/2025 3:00 PM EDT Office Visit [facility] [place] [address] [facility] [place] [address] Steph Vincent, SECURITY TECHNICIAN [address] [facility] [address] [place] [address] documented as of this encounter Procedures Procedure Name Priority Date/Time Associated Diagnosis Comments MAMMOGRAPHY BREAST SCREENING TOMOSYNTHESIS BILATERAL Routine 12/09/2024 1:50 PM EDT Malignant neoplasm of left breast in female, estrogen receptor negative, unspecified site of breast documented in this encounter Results * Mammography Breast Screening Tomosynthesis Bilateral (12/09/2024 1:50 PM EDT) Anatomical Region Laterality Modality Breast Bilateral Mammography Impressions 12/09/2024 3:14 PM EDT No mammographic evidence of malignancy. BI-RADS CATEGORY: Overall: 2 - Benign RECOMMENDATION: - Routine Screening Mammogram in 1 Year. Patient Lifetime Risk Score of Breast Malignancy: A risk score has not been calculated for this patient. This risk assessment is calculated using the Ayleen Risk Assessment model which may underestimate the lifetime risk of breast malignancy. COMMUNICATION: Computer-aided detection (CAD) and tomosynthesis were utilized by the radiologist in the interpretation of this examination. The results and recommendations will be sent to the patient in a printed lay language version of the imaging report. Narrative 12/09/2024 3:14 PM EDT EXAM: Mammography Breast Screening with Tomosynthesis REASON FOR EXAM: Screening Mammogram HISTORY: Patient is 54 y.o. Surgical and procedural history include right breast biopsy (Apr 2017 MRI bx benign, focal ductal hyperplasia); left breast biopsy (Feb 2017 US core benign breast tissue with zonal fibrosis); left lumpectomy (January 2017); left breast cyst aspiration (march 2017); left breast surgery (January 2017); and left breast lumpectomy (January 2017). Medical history includes breast cancer (left breast unknown type ); radiation therapy; and chemotherapy. COMPARISON STUDIES: Compared to: 11/16/2021 Mammography Breast Diagnostic Tomosynthesis Bilateral at [facility] 11/16/2021 Breast Limited Right at [facility] 11/20/2022 Mammography Breast Diagnostic Tomosynthesis Bilateral at [facility] 11/20/2022 Breast Limited Right at [facility] 11/26/2023 Mammography Breast Screening Tomosynthesis Bilateral at [facility] BREAST COMPOSITION: There are scattered areas of fibroglandular density. FINDINGS: There is a post-biopsy clip(s) present in the right breast. There are post-lumpectomy changes and post-biopsy clip(s) present in the left breast. There is no evidence of suspicious masses, calcifications, or other abnormal findings. us Steph Vincent APRN IMG BI PROCEDURES Final R esult documented in this encounter Visit Diagnoses Diagnosis Malignant neoplasm of left breast in female, estrogen receptor negative, unspecified site of breast documented in this encounter Additional Health Concerns Assessment Noted Time PHQ-9 Depression Total Score: 0 12/10/19 25 2:11 PM EDT A fall risk assessment has been complete d for the patient 12/09/2024 2:11 PM EDT A Body Mass Index follow-up plan has been documented for the patient 11/20/2022 3:15 PM EDT documented as of this encounter Care Teams Client Care Consultant Relationship Specialty Start Date End Date Khurram Holguin MD [address] [place] [address] PCP - General 10/14/20 Andrade Lucas MD [address] [facility] [address] [place] [phone] Consulting Physician Radiation Oncology 08/08/21 Jaimie Acosta MD [address] [place] [phone] Consulting Physician Hematology and Oncology 05/22/22 documented as of this encounter
--- OUTSIDE RECORDS SUMMARY | 2024-12-09 14:00 | XMS_ITS | Encounter Summary ---
Author Organization [facility] Address [address] [place] [address] Care Team Providers Care Clinical Psychiatrist Name Role Phone Khurram Holguin MD Primary Care Provider Andrade Lucas MD Unavailable Jaimie Acosta MD Unavailable Encounter Details Date Type Department Care Team (Late st Contact Info) Description 12/09/2024 2:00 PM EDT Office Visit [facility] [address] [place] [id number] Steph Vincent D, PARCEL CONTRACTOR [address] [facility] [address] [place] [address] Malignant neoplasm of left breast in female, estrogen receptor negative, unspecified site of breast (Primary Dx) Social History Tobacco Use Types Packs/Day Years [...] Sign Reading Time Taken Comments Blood Pressure 131/80 12/09/2024 2:16 PM EDT Pulse 98 12/09/2024 2:16 PM EDT Temperature 36.7 C (98 F) 12/09/2024 2:16 PM EDT Respiratory Rate - - Oxygen Saturation 98% 12/09/2024 2:16 PM EDT Inhaled Oxygen Concentration - - Weight 118 kg (259 lb 7.7 oz) 12/09/2024 2:16 PM EDT Height 160 cm (5' 3 ) 12/09/2024 2:16 PM EDT Body Mass Index 45.97 12/09/2024 2:16 PM EDT documented in this encounter Functional Status * [...] much Not at all 12/09/2024 2:11 PM EDT Camille Remy Feeling tired or having neida le energy Not at all 12/09/2024 2:11 PM EDT Camille Remy Poor appetite or overeating Not at all 12/09/2024 2: 11 PM EDT Camille Remy Feeling bad about yourself - or that you are a failure or have let yourself or your family down Not at all 12/09/2024 2:11 PM EDT Camille Remy Trouble concentrating on thi ngs, such as reading the newspaper or watching television Not at all 12/09/2024 2:11 PM EDT Camille Remy Moving or speaking so slowly that other people could have noticed? Or the opposite - being so fidgety or restless that you have been moving around a lot more than usual. Not at all 12/09/2024 2:11 PM EDT Camille Remy Thoughts that you would be b shae off or hurting yourself in some way Not at all 12/09/2024 2:11 PM EDT Camille Remy Patient Health Questionnaire -9 Score 0 12/09/2024 2:11 PM EDT Camille Remy * If you checked off any problems on this questionnaire so far, Question Answer Date of Assessment Author How difficult have these problems made it for you to do your work, take care of things at home, or get along with other people? Not difficult at all 12/09/2024 2:11 PM EDT Camille Remy documented as of this encounter Miscellaneous Notes * Progress Notes - Steph Vincent, PARCEL CONTRACTOR - 12/09/2024 2:00 PM EDT ONCOLOGY FOLLOW UP NOTE Patient Name: Sushant Anne Date of : 1970 Encounter date: 12/09/2024 Patient Care Team: Khurram Holguin MD as PCP - Andrade Garcia MD as Consulting Physician (Radiation Oncology) Jaimie Acosta MD as Consulting Physician (Hematology and Oncology) Surgical Oncologist: Chau Ojeda MD. Chief Complaint: Sushant Anne is a 54 y.o. female who presents for scheduled follow-up and continuing oncology care. She has no breast related complaints today. Reports discomfort in her left shoulder. 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 0/2 Lymph nodes. Negative surgical margins. Triple negative . [id number] Procedure: 10/25/17 Left needle localized lumpectomy with deep axillary sentinel lymph node biopsy. Treatment: 04/2017 - 06/2017: DD AC 06/2017 - 09/2017: Weekly Taxol 11/2017 - 03/2018: Adjuvant Xeloda Mrs. Anne is a 52 y.o. year-old female who noticed pain in her left breast after leaning over a bedpost to pickup something off of the floor. Imaging revealed a spiculated mass in the upper outer quadrant of the left breast and ultrasound confirmed a lesion at the 1:00 position measuring 1.5 cm. Biopsy performed on 01/23/2017 revealed moderately to poorly differentiated triple negative cancer withassociated high-grade DCIS. She underwent bilateral breast MRI which confirmed the primary tumor but also revealed an abnormal-appearing left axillary lymph node, a 6 mm internal mammary lymph node and a contralateral (right 5 mm lesion at the 9:00 position. FNA of the left axillary lymph node was negative and MRI guided biopsy of the right breast abnormality was recommended. This was performed on April 03, 2017 revealing focal ductal hyperplasia without atypia. She was started on dose dense AC chemotherapy. She underwent a MUGA scan at her local hospital the day before her first chemotherapy. The results were not available and since she had no cardiac complaints, we proceeded with her first cycle of chemotherapy. The next day the results of the outside MUGA scan showed an ejection fraction of 39% with global hypokinesia. 2-D echo here, prior to cycle 2 was normal with EF 60-70%. She has completed 4 cycles of dose dense AC chemotherapy and 11 doses of weekly Taxol. She did not receive the 12th dose due to neuropathy. On October 26, 2015 she underwent a left needle localized lumpectomy and sentinel lymph node biopsy with final pathology showing 1.5 cm of residual disease with treatment effect; ypT1c y(sn)pN0. The margins of resection were negative. The focal residual ductal carcinoma was grade 2. Two lymph nodes were removed and both were negative for metastasis. Since there was evidence of residual disease measuring over 1 cm, we discussed that she is a candidate for the S1418 study, a trial to evaluate the efficacy and safety of Pembrolizumab as adjuvant therapy for triple negative breast cancer. We also discussed treating with adjuvant Xeloda for 6-8 cycles. She declined the trial, but did agree to the Xeloda. She completed 6 cycles of Xeloda in 04/2018. Completed XRT in 06/2018. Primary malignant neoplasm of upper outer quadrant of left breast 01/23/2017 Cancer Staged Staging form: Breast, AJCC V7, Clinical stage from 01/23/2017: Stage IA (T1c, N0, M0) - Signed by Jaimie Acosta MD on 05/22/2022 04/02/2017 Initial Diagnosis Primary malignant neoplasm of upper outer quadrant of left breast (CMS/HCC) 10/25/2017 Cancer Staged Staging form: Breast, AJCC V7, Pathologic stage from 10/25/2017: Stage IA (yT1c, N0, cM0) - Signed by Jaimie Acosta MD on 05/22/2022 Interval History: Denies any specific breast cancer related complaints today. Denies any palpable areas of concern. Denies shortness of breath/cough. Denies headaches/vision changes. Denies any changes in fatigue. Adequate PO intake, denies N/V. No bowel or bladder pattern changes. Reports discomfort in her left shoulder; she has undergone PT for 2 months with minimal improvement. She has a MRI upcoming within the week. ROS: A comprehensive 14 point ROS was elicited and was negative except as noted in HPI. Reviewed Past Medical History/Past Surgical History, Current Medications/Allergies, Family and Social History; unchanged from last clinic visit or updated as indicated. Allergies and Adverse Drug Reactions: Cleocin [clindamycin] and Percocet [oxycodone-acetaminophen] Medications: Current Outpatient Medications Medication Instructions clobetasol (Temovate) 0.05 % cream 1 application., Topical, 2 times daily labetalol (NORMODYNE) 200 mg, Oral, 2 times daily lisinopril-hydroCHLOROthiazide 20-25 MG tablet Take 1 tablet by mouth 1 (one) time each day. metFORMIN (GLUCOPHAGE) 500 mg, Oral, 2 times daily with meals nystatin (Mycostatin) 333067 UNIT/GM powder No dose, route, or frequency recorded. spironolactone (Aldactone) 50 MG tablet 1 tablet, Oral, 2 times daily ECOG Performance Status: 0: Fully active, able to carry on all pre-disease performance without restriction Visit Vitals BP 131/80 (BP Location: Right arm, Patient Position: Sitting) Pulse 98 Temp 36.7 ??C (98 ??F) (Oral) Ht 1.6 m (5' 3 ) Wt 118 kg (259 lb 7.7 oz) SpO2 98% BMI 45.97 kg/m?? OB Status Hysterectomy Smoking Status Former BSA 2.29 m?? Wt Readings from Last 5 Encounters: 11/26/23 114 kg (252 lb 3.3 oz) 06/12/23 115 kg (253 lb 4.9 oz) 05/22/23 114 kg (251 lb 12.3 oz) 11/20/22 117 kg (258 lb) 05/22/22 114 kg (251 lb 12.3 oz) There is no height or weight on file to calculate BMI. There is no height or weight on file to calculate BSA. Physical Examination: GENERAL: Female alert and in no acute distress. NECK: Supple, without cervical or clavicular LA RESPIRATORY: Lungs CTA bilaterally with symmetrical chest expansion HEART: Regular rate and rhythm without murmurs BREAST: The breasts are large and pendulous. The right breast is without dominant mass, nipple discharge or skin changes. The left breast is S/p lumpectomy. Radiation skin changes are noted, particularly in the axillary tail. Firmness in the upper inner and outer quadrants. No masses palpated. No ax illary adenopathy is appreciated bilaterally. EXT: No pedal edema is present bilaterally. SKIN: No rashes or subcutaneous nodules. No bruising. NEURO: Alert, oriented. There are no focal deficits. PSYCH: Judgment and insight are unimpaired. Mood and affect appropriate Radiology: screening mammogram PENDING read. Will continue to monitor. Sushant Anne is a 54 y.o. female with Cancer Staging Primary malignant neoplasm of upper outer quadrant of left breast Staging form: Breast, AJCC V7 - Clinical stage from 01/23/2017: Stage IA (T1c, N0, M0) - Signed by Jaimie Acosta MD on 05/22/2022 - Pathologic stage from 10/25/2017: Stage IA (yT1c, yN0, cM0) - Signed by Jaimie Acosta MD on 05/22/2022 Impression/Plan: 1. Clinical Stage IA (AJCC 7th Edition) T2 N0 M0 pathological stage IA ypT1c y(sn)pN0 (left triple negative poorly differentiated breast cancer, s/p left lumpectomy and sentinel lymph node biopsy 2. History of antineoplastic chemotherapy 3. HTN Cancer Management She continues in remission from early stage left triple negative breast cancer. She has no signs orsymptoms of recurrence. Agree with MRI to further work up left shoulder discomfort. Will call patient with results from mammogram as it is still pending as this time. Regimen related toxicities NA Genetics BreastNext 2016 negative for mutations Follow-up She continues in remission from left triple negative breast cancer. RTC in 1 year with ma Screening mammogram in 12/2025; unless otherwise indicated by results of mammogram today. As always, she is encouraged to contact our office at the number provided for any additional questions or concerns. She voiced understanding of the plan, asked appropriate questions, and all questions were answered to her satisfaction today. 30 minutes was spent on this encounter; including preparing to see the patient, which involved review/interpretation of diagnostics and reports; obtaining and/or reviewing separately obtained history; performing appropriate physical exam; ordering/scheduling medications, tests or procedures; communicating findings and counseling/educating the patient, family and/or caregiver; documentation in EMR; and care coordination. Steph Vincent APRN Division of Medical Oncology [address] [phone] phone [phone] fax documented in this encounter Plan of Treatment Upcoming Encounters Date Type Department Care Team ([facility] st Contact Info) Description 12/13/2025 2:00 PM EDT Appointment [facility] [place] [address] [address] [facility] [address] [place] [address] 12/13/2025 3:00 PM EDT Office Visit [facility] [address] [place] [address] Steph Vincent, PARCEL CONTRACTOR [address] [address] [facility] [facility] [address] [place] [address] Scheduled Orders Name Type Priority Associated Diagnoses Orde r Schedule Mammography Breast Screening Tomosynthesis Bilateral Imaging Routine Malignant neoplasm of left breast in female, estrogen receptor negative, unspecified site of breast ([facility]/HCC) Expected: 12/09/2025 (Approximate), Expires: 06/12/2026 documented as of this encounter Visit Diagnoses Diagnosis Malignant neoplasm of left breast in female, estrogen receptor negative, unspecified site of breast- Primary documented in this encounter Additional Health Concerns Assessment Noted Time PHQ-9 Depression Total Score: 0 12/10/19 25 2:11 PM EDT A fall risk assessment has been complete d for the patient 12/09/2024 2:11 PM EDT A Body Mass Index follow-up plan has been documented for the patient 11/20/2022 3:15 PM EDT documented as of this encounter Care Teams Clinical Psychiatrist Relationship Specialty Start Date End Date Khurram Holguin MD [address] [place] [address] PCP - General 10/14/20 Andrade Lucas MD [address] [facility] [address] [place] [address] Consulting Physician Radiation Oncology 08/08/21 Jaimie Acosta MD [address] [facility] [address] [place] [address] Consulting Physician Hematology and Oncology 05/22/22 documented as of this encounter
--- OUTSIDE RECORDS SUMMARY | 2024-12-14 12:40 | XMS_ITS | Clinical Summary ---
Author Organization [facility] Address [address] [place] [address] Care Team Providers Care Oracle Fusion Developer Name Role Phone Khurram Holguin MD Primary Care Provider [phone] Andrade Lucas MD Unavailable [phone] Jaimie Acosta MD Unavailable [phone] Allergies Active Allergy Reactions Criticality Noted Date Comments Clindamycin Rash Low 11/10/2020 Oxycodone-Acetaminoph en Other - please document in the comment field Low 06/24/2017 Pt reports hallucinations and swelling of tongue Medications clobetasol (Temovate) 0.05 % cream Apply 1 application topically 2 (two) times a day. 0 Active spironolactone (Aldactone) 50 MG tablet Take 1 tablet (50 mg) by mouth 2 (two) times a day. 1 Active labetalol (Normodyne) 200 MG tablet Take 1 tablet (200 mg) by mouth 2 (two) times a day. Active nystatin (Mycostatin) 300517 UNIT/GM powder 3 Active lisinopril-hydr oCHLOROthiazide 20-25 MG tablet Take 1 tablet by mouth 1 (one) time each day. 3 Active metFORMIN (Glucophage) 500 MG tablet Take 1 tablet (500 mg) by mouth 2 (two) times a day with meals. Active Active Problems Problem Noted Date Diagnosed Date Primary malignant neoplasm o f upper outer quadrant of left breast 04/02/2017 Cancer Staging:Clinical stage from 01/23/2017:Stage IA(T1c, N0, M0) - Signed by Jaimie Acosta MD on 05/22/2022 Pathologic stage from 10/25/2017:Stage IA(yT1c, yN0, cM0) - Signed by Jaimie Acosta MD on 05/22/2022 Overview (05/08/2022): Malignant neoplasm of upper-outer quadrant of left female breast Resolved Problems Problem Noted Date Diagnosed Date Resolved Date Cancer of left breast 05/08/20222021 Encounters Date Type Department Care Team Description 12/09/2024 2:00 PM EDT Office Visit [facility] Breast Care Center [address] [facility] [place] [address] Steph Vincent D, DOCUMENT ADVISOR Malignant neoplasm of left breast in female, estrogen receptor negative, unspecified site of breast (Primary Dx) 12/09/2024 12:58 PM EDT - 12/09/2024 11:59 PM EDT Hospital Encounter [facility] Breast [facility] [address] [address] Malignant neoplasm of left breast in female, estrogen receptor negative, unspecified site of breast Discharge Disposition: Home or Self Care 12/09/2024 Travel from Last 3 Months Family History Medical History Relation Name Comments Conversions - Other Other No famil y history of cancer Relation Name Status Comments Other Social History Tobacco Use Types Packs/Day Years Used Date Smoking Tobacco: Former Cigarettes Q uit: 1989 Smokeless Tobacco: Never Tobacco Cessation:Counseling Given: Not Answered PHQ-2 Answer Date Recorded Patient Health Questionnaire-2 Score 0 12/09/2024 PHQ-9 Answer Date Recorded Patient Health Questionnaire-9 Score 0 12/09/2024 Comments No Sex and Gender Information Value Date Recorded Sex Assigned at Not on file Legal Sex Female 6:19 PM EDT Gender Identity Not on file Sexual Orientation Not on file Last Filed Vital Signs Vital Sign Reading Time Taken Comments Blood Pressure 131/80 12/09/2024 2:16 PM EDT Pulse 98 12/09/2024 2:16 PM EDT Temperature 36.7 C (98 F) 12/09/2024 2:16 PM EDT Respiratory Rate 16 06/12/2023 11:06 AM EST Oxygen Saturation 98% 12/09/2024 2:16 PM EDT Inhaled Oxygen Concentration - - Weight 118 kg (259 lb 7.7 oz) 12/09/2024 2:16 PM EDT Height 160 cm (5' 3 ) 12/09/2024 2:16 PM EDT Body Mass Index 45.97 12/09/2024 2:16 PM EDT Plan of Treatment Upcoming Encounters Date Type Department Care Team (Late st Contact Info) Description 12/13/2025 2:00 PM EDT Appointment [facility] Breast [facility] Comprehensive [facility] [address] [facility] [address] [place] [address] 12/13/2025 3:00 PM EDT Office Visit [facility] Breast Care Center [address] [facility] [place] [address] Steph Vincent, DOCUMENT ADVISOR [address] [facility] [address] [place] [address] Health Maintenance Due Date Last Done Comments [facility]-HIV Screening 1970 [facility]-Hepatitis C Screening 1970 [facility]-Infant/Child/Adol SDOH Screenings 1970 [id number] Vaccine (#1) 08/27/1975 [facility]- SDOH Screenings 1988 [facility]-Adult SDOH Screenings 1988 [facility]-DTaP,Tdap,and Td Vaccines (1 - Tdap) 1989 [facility]-Hepatitis B Vaccines (1 of 3 - 19+ 3-dose series) 1989 [facility]-Zoster Vaccines (1 of 2) 1989 CT Colonography 08/27/2015 Colonoscopy 08/27/2015 FIT-DNA 08/27/2015 FIT 08/27/2015 FOBT 08/27/2015 Sigmoidoscopy 08/27/2015 [facility]-Colorectal Cancer Screening 08/27/2015 [facility]-Pneumococcal Vaccine: 50+ Years (2 of 2 - PCV) 03/28/2019 03/28/2018 [facility]-Pap Smear 03/12/2020 03/12/2017 [facility]-Cervical Cancer Screening 03/12/2022 [facility]-HPV/Cotest 03/12/2022 03/12/2017 [facility]-Influenza Vaccine (#1) 02/01/202502/13, 02/18/2020, 04/20/2019, Additional history exists [facility]-Depression Screening 12/09/2025 12/09/2024, 02/2025 [facility]-Obesity Intervention Completed 11/20/2022 HPV Vaccines Aged Out No longer eligi ble based on patient's age to complete this topic [facility]-HIB Vaccines Aged Out No longer e ligible based on patient's age to complete this topic [facility]-Hepatitis A Vaccines Aged Out No longer eligible based on patient's age to complete this topic [facility]-IPV Vaccines Aged Out No longer e ligible based on patient's age to complete this topic [facility]-Rotavirus Vaccines Aged Out No lo nger eligible based on patient's age to complete this topic Procedures Procedure Name Priority Date/Time Associated Diagnosis Comments MAMMOGRAPHY BREAST SCREENING TOMOSYNTHESIS BILATERAL Routine 12/09/2024 1:50 PM EDT Malignant neoplasm of left breast in female, estrogen receptor negative, unspecified site of breast CYTO DATA CONVERSION Routine 03/12/2017 12:00 AM EDT from Last 3 Months or Most Recently Relevant to Health Maintenance Results * Mammography Breast Screening Tomosynthesis Bilateral [...] 11/16/2021 Mammography Breast Diagnostic Tomosynthesis Bilateral at [facility] 11/16/2021 US Breast Limited Right at [facility] 11/20/2022 Mammography Breast Diagnostic Tomosynthesis Bilateral at [facility] 11/20/2022 US Breast Limited Right at [facility] 11/26/2023 Mammography Breast Screening Tomosynthesis Bilateral at [facility] BREAST COMPOSITION: There are scattered areas of fibroglandular density. FINDINGS: There is a post-biopsy clip(s) present in the right breast. There are post-lumpectomy changes and post-biopsy clip(s) present in the left breast. There is no evidence of suspicious masses, calcifications, or other abnormal findings. us Steph Vincent APRN IMG BI PROCEDURES Final R esult * Cytology (03/12/2017 12:00 AM EDT) 03/12/2017 03/12/2017 12: 57 PM EDT Narrative [facility]QUEST - 03/12/2017 4:45 PM EDT [facility] MR #: [id number] [facility] LUIZDYLON [place], [place] [address] 1970 (Age: 46) FW Collect Date: 03/12/2017 00:00 Receipt Date: 03/12/2017 12:57 Page 1 DEPARTMENT OF PATHOLOGY AND LABORATORY MEDICINE CYTOPATHOLOGY REPORT Email: [email or web address] [phone] ATTENDING MD/Practitioner: Clay De Los Santos M.D. Service: [facility] Location: [facility] OTHER MD(S): Isaak Putnam MD Reported: 03/12/2017 16:45 Collected: 03/12/2017 00:00 DIAGNOSIS A. LEFT AXILLA SUPERFICIAL LYMPH NODE, US-GUIDED FNA: (SMEARS AND THIN PREP) - NON-DIAGNOSTIC SPECIMEN, BLOOD ONLY. B. LEFT AXILLA DEEPER LYMPH NODE, US-GUIDED FNA: (SMEARS AND THIN PREP) - LYMPHOID TISSUE WITH NO EVIDENCE OF MALIGNANCY. Electronically Signed Out Brooks Lara MD PROCEDURES/ADDENDA GROSS DESCRIPTION: A/B: 5 ml of needle rinse fluid processed as Thinprep and/or cytospin for complete evaluation of sample each. CLINICAL INFORMATION: Cancer History: Breast: left, now CLINICAL DIAGNOSIS Invasive ductal left breast A: Left axillary node superficial FNA performed by: Dr. De Los Santos Number of sticks: 6 Immediate evaluation performed by: Dr. Lara/AARON Evaluation episode # 1 - 6: Non-diagnostic, blood only B: Deeper left axillary node FNA performed by: Dr. De Los Santos Number of sticks: 3 Immediate evaluation performed by: Dr. Lara/AARON Evaluation episode # 1 - 3: Lymphoid tissue present, no malignant cells seen This service has been rendered in part by a resident. A pathologist has personally reviewed the slides/tissue and has rendered and is responsible for the diagnosis that appears on the report. SPECIMEN DESCRIPTION: A: US GUIDED FNA; LEFT AXILLARY SUPERFICIAL MASS PAP STAIN x 6, DIFF-QUIK x 6, THIN PREP PROCESS CELLULAR ENHANCEMENT B: US GUIDED FNA; LEFT AXILLARY DEEPER MASS PAP STAIN x 3, DIFF-QUIK x 3, THIN PREP PROCESS CELLULAR ENHANCEMENT ICD: R59.0 Localized enlarged lymph nodes C50.912 Malignant neoplasm of unspecified site of left female breast F: A; 42255 ASP INTER A,B; 09998(2), 72402(2), 25634(2) B; 04896 ASP INTER SNOMED CODES: A; C97843 P1149 [id number] B; E04966 Y02590 P1149 [id number] A resident has participated in this service. A pathologist has performed and is responsible for the reported pathologic evaluation. us Drew De Los Santos MD LAB PATHOLOGY ORDERABLES Final Result SUNQUEST from Last 3 Months or Most Recently Relevant to Health Maintenance Insurance ANTHEM Care Teams Oracle Fusion Developer Relationship Specialty Start Date End Date Khurram Holguin MD [address] [place] [address] PCP - General 10/14/20 Andrade Lucas MD [address] [place] [phone] Consulting Physician Radiation Oncology 08/08/21 Jaimie Acosta MD [address] [place] [address] Consulting Physician Hematology and Oncology 05/22/22
--- OUTSIDE RECORDS SUMMARY | 2024-12-14 12:40 | XMS_ITS | Encounter Summary ---
Author Organization [facility] Address [address] [place] [address] Care Team Providers Care Circuit Court Clerk Name Role Phone Khurram Holguin MD Primary Care Provider [phone] Andrade Lucas MD Unavailable [phone] Jaimie Acosta MD Unavailable [phone] Encounter Details Date Type Department Care Team (Latest Contact Info) Description 12/09/2024 Travel Social History Tobacco Use Types Packs/Day Years [...] on file documented as of this encounter Functional Status * Over the [...] television Not at all 12/09/2024 2:11 PM CHERYLT Camille Remy Moving or speaking so slowly that other people could have noticed? Or the opposite - being so fidgety or restless that you have been moving around a lot more than usual. Not at all 12/09/2024 2:11 PM CHERYLT Camille Remy Thoughts that you would be [...] Camille Remy documented as of this encounter Plan of Treatment Upcoming Encounters Date Type Department Care Team (Late st Contact Info) Description 12/13/2025 2:00 PM EDT Appointment [facility] [place] [address] [facility] [address] [place] [address] 12/13/2025 3:00 PM EDT Office Visit [facility] [address] [facility] [place] [address] Steph Vincent, FAMILY LAW ATTORNEY [address] [facility] [address] [place] [address] documented as of this encounter Visit Diagnoses Not on filedocumented in this encounter Additional Health Concerns Assessment Noted Time PHQ-9 Depression Total Score: 0 12/10/19 25 2:11 PM EDT A fall risk assessment has been complete d for the patient 12/09/2024 2:11 PM EDT A Body Mass Index follow-up plan has been documented for the patient 11/20/2022 3:15 PM EDT documented as of this encounter Care Teams Circuit Court Clerk Relationship Specialty Start Date End Date Khurram Holguin MD [address] [place] [address] PCP - General 10/14/20 Andrade Lucas MD [address] [facility] [address] [place] [address] Consulting Physician Radiation Oncology 08/08/21 Jaimie Acosta MD [address] [facility] [address] [place] [address] Consulting Physician Hematology and Oncology 05/22/22 documented as of this encounter
--- OUTSIDE RECORDS SUMMARY | 2024-12-14 12:40 | XMS_ITS | Encounter Summary ---
Author Organization [facility] Address [address] [place] [address] Care Team Providers Care Retail Pharmacy Technician Name Role Phone Khurram Holguin MD Primary Care Provider [phone] Andrade Lucas MD Unavailable [phone] Jaimie Acosta MD Unavailable [phone] Reason for Referral * Imaging (Routine) - Closed Specialty Diagnoses / Procedures Referred By Shaye wolf Referred To Contact Radiology Diagnoses Malignant neoplasm of left breast Procedures Mammography Breast Diagnostic Tomosynthesis Bilateral Chau Girard MD [address] [facility] [address] [address] Phone: tel: fax: Referral ID Status Reason Start Date Expiration Date Visits Re quested Visits Authorized [id number] Closed 11/02/2020 05/01/2021 1 1 Encounter Details Date Type Department Care Team (Late st Contact Info) Description 11/02/2020 Orders Only [facility] [address] [facility] [place] [address] Chau Girard MD [address] [facility] [address] [facility] [address] [place] [address] Malignant neoplasm of left breast (CMS/HCC) (Primary Dx) Social History Tobacco Use Types Packs/Day Years Used Date Smoking Tobacco: Never Assessed Comments Unknown Sex and Gender Information Value Date Recorded Sex Assigned at Not on file Legal Sex Female 6:19 PM EDT Gender Identity Not on file Sexual Orientation Not on file documented as of this encounter Plan of Treatment Upcoming Encounters Date Type Department Care Team (Late st Contact Info) Description 12/13/2025 2:00 PM EDT Appointment [facility] [address] [place] [address] 12/13/2025 3:00 PM EDT Office Visit [facility] [place] [address] [facility] [place] [address] Steph Vincent, TOE STAPLER [address] [facility] [address] [place] [address] documented as of this encounter Results * Mammography Breast Diagnostic Tomosynthesis Bilateral (11/10/2020 10:25 AM EDT) Anatomical Region Laterality Modality Breast Bilateral Mammography Impressions 11/10/2020 11:01 AM EDT BI-RADS Code: BI-RADS 2. Benign finding. RECOMMENDATIONS: Diagnostic Mammogram in 1 Year CRITICAL RESULT: No. COMMUNICATION: The results and recommendations were discussed with the patient and a printed lay language version of the imaging report was given to the patient at the time of the visit. The mammogram was read with the assistance of CAD and tomosynthesis. By electronically signing this report, I, the attending physician, attest that I have personally reviewed the images/data for the above examination(s) and agree with the final edited report. Signed by Margaret Bruce on 11/10/2020 11:01 AM Narrative 11/10/2020 11:01 AM EDT Exam/Procedure: MAMMOGRAPHY BREAST DIAGNOSTIC TOMOSYNTHESIS BILATERAL ordered by CHAU GIRARD, [id number] CLINICAL INDICATION: History of left breast cancer, status post lumpectomy (2017). TECHNIQUE: Bilateral diagnostic mammogram was performed. Computer assisted detection was used in the interpretation of this study.Tomosynthesis was used in the interpretation of this study COMPARISON: None. FINDINGS: Breast Density: Scattered fibroglandular density Findings: Postlumpectomy changes in the left breast, which are stable. Tissue markers in the bilateral breasts. No new suspicious calcifications, masses, or areas of architectural distortion. Procedure Note Margaret Bruce MD - 11/10/2020 Exam/Procedure: MAMMOGRAPHY BREAST DIAGNOSTIC TOMOSYNTHESIS BILATERALordered by CHAU GIRARD, [id number] CLINICAL INDICATION: History of left breast cancer, status post lumpectomy (2017). TECHNIQUE: Bilateral diagnostic mammogram was performed. Computer assisted detection was used in the interpretation of thisstudy.Tomosynthesis was used in the interpretation of this study COMPARISON: None. FINDINGS: Breast Density: Scattered fibroglandular density Findings: Postlumpectomy changes in the left breast, which are stable.Tissue markers in the bilateral breasts. No new suspicious calcifications,masses, or areas of architectural distortion. IMPRESSION: BI-RADS Code: BI-RADS 2. Benign finding. RECOMMENDATIONS: Diagnostic Mammogram in 1 Year CRITICAL RESULT: No. COMMUNICATION: The results and recommendations were discussed with the patient and aprinted lay language version of the imaging report was given to thepatient at the time of the visit. The mammogram was read with theassistance of CAD and tomosynthesis. By electronically signing this report, I, the attending physician, attestthat I have personally reviewed the images/data for the aboveexamination(s) and agree with the final edited report. Signed by Margaret Bruce on 11/10/2020 11:01 AM us Chau Girard MD IMG BI PROCEDURES Final Res ult documented in this encounter Visit Diagnoses Diagnosis Malignant neoplasm of left breast- Primary Malignant neoplasm of left breast documented in this encounter Care Teams Retail Pharmacy Technician Relationship Specialty Start Date End Date Khurram Holguin MD [address] [place] [address] PCP - General 10/14/20 Andrade Lucas MD [address] [facility] [address] [place] [address] Consulting Physician Radiation Oncology 08/08/21 Jaimie Acosta MD [address] [place] [facility] [address] [place] [address] Consulting Physician Hematology and Oncology 05/22/22 documented as of this encounter
--- NOTE | 2024-12-14 12:41 | MR_ITS ---
FINAL REPORT TECHNIQUE: Multiplanar MR without contrast CLINICAL HISTORY: left shoulder pain COMPARISON: None FINDINGS: Marrow signal: Unremarkable Glenohumeral joint: Small joint effusion. No significant degenerative changes. AC joint: Mild hypertrophic changes without rotator cuff impingement. Rotator cuff: Focal full-thickness tear anterior half distal supraspinatus tendon measuring up to 16 mm. Remaining rotator cuff intact. Labrum: Truncated superior labrum consistent with tear. Anterior and posterior labrum intact. Biceps tendon: Nonvisualization consistent with complete tear. IMPRESSION: Superior labral tear. Large focal full-thickness tear distal supraspinatus tendon. Complete tear long head biceps tendon. Reviewed, Interpreted and Dictated by Pilo Avery MD Transcribed by Felecia Celis Authenticated and [facility]
== END 2024-12-14 23:59 | disposition home or self-care (01) ==
LOC: RAD 12:39
PROVIDERS: PCP Internal Medicine Adolescent Medicine; Visit Provider Internal Medicine Adolescent Medicine
DX: S43.432A Superior glenoid labrum lesion of left shoulder, initial encounter (principal); M75.122 Complete rotator cuff tear or rupture of left shoulder, not specified as traumatic; S46.112A Strain of muscle, fascia and tendon of long head of biceps, left arm, initial encounter
CPT/HCPCS: 73221